=== PATIENT | female | born 1945 | race Caucasian/White ===

== ENCOUNTER → 2019-07-05 | Outpatient (CLI) | payer OTHER ==
[~2019-07-05] MED LIST: AMLO5 PO; Amaryl1 MG PO; CYCL10 PO; ESCI10; GLYMET1.25; HYDACE5 PO; HYDCHL12.5; LISI20 PO; METF500 PO; Norco 5-325 Ta1 EACH PO; VALS80
[2019-07-05 13:06] LABS: Source, Urine Clean Catch
[2019-07-05 13:17] LABS: Bacteria Many /hpf; Squamous Epithelial Cells Many /hpf (Few)
[2019-07-05 13:44] LABS: BASOPHILS ABSOLUTE AUTO 0.04 K/mm3 (0.00-0.23); BASOPHILS PERCENT AUTO 1 % (0-2); EOSINOPHILS PERCENT AUTO 2 % (0-6); Hematocrit 44.5 % (33.0-51.0); Hemoglobin 14.9 g/dL (11.5-16.0); IMMATURE GRAN ABSOLUTE AUTO 0.03 K/mm3 (0.00-0.10); IMMATURE GRAN PERCENT AUTO 1 % (0-1); LYMPHOCYTES ABSOLUTE AUTO 1.43 K/mm3 (0.84-5.20); LYMPHOCYTES PERCENT AUTO 29 % (21-46); MONOCYTES ABSOLUTE AUTO 0.34 K/mm3 (0.16-1.47); MONOCYTES PERCENT AUTO 7 % (4-13); Mean Corpuscular HGB 30.7 pg (26.0-34.0); Mean Corpuscular HGB Conc 33.5 g/dL (31.5-36.5); Mean Corpuscular Volume 92 fL (80-100); Mean Platelet Volume 9.2 fL (9.1-12.4); NEUTROPHILS ABSOLUTE AUTO 3.08 K/mm3 (1.96-9.15); NEUTROPHILS PERCENT AUTO 61 % (41-73); Platelet Count 236 K/mm3 (150-400); RDW Coefficient Variation 13.1 % (11.7-14.2); RDW Standard Deviation 43.9 fL (35.1-46.3); Red Blood Cell Count 4.86 M/mm3 (3.80-5.20); White Blood Cell Count 5.02 K/mm3 (4.00-11.30)
[2019-07-05 13:56] LABS: Alanine Aminotransfer (ALT/SGP 45 U/L (12-78); Albumin, Blood 3.9 g/dL (3.4-5.0); Albumin/Globulin Ratio 0.8 (0.8-1.8); Alk Phos 114 U/L (40-126); Anion Gap 8 mmol/L (6-16); Aspartate Aminotrans (AST/SGOT 31 U/L (12-37); Bilirubin, Total 0.5 mg/dL (0.1-1.0); Blood Urea Nitrogen 11 mg/dL (8-24); Bun/Creatinine Ratio 13.3 (12.0-20.0); CO2, Blood 29 mmol/L (21-32); Calcium, Blood 9.1 mg/dL (8.5-10.1); Chloride, Blood 102 mmol/L (98-108); Creatinine, Blood 0.83 mg/dL (0.40-1.00); Globulin, Blood 4.6 g/dL (2.2-4.0); Glomerular Filtration Rate >60 (60-); Glucose, Blood 147 mg/dL (70-99); Sodium, Blood 139 mmol/L (136-145); Total Protein, Blood 8.5 g/dL (6.4-8.2)
== END | disposition home or self-care (01) ==
LOC: LAB SHORT 13:05 → LAB EV 13:05
PROVIDERS: General Practice
DX: E11.37X1 Type 2 diabetes mellitus with diabetic macular edema, resolved following treatment, right eye (principal); R82.90 Unspecified abnormal findings in urine
CPT/HCPCS: 80053; 81015; 83036; 85025; 87077; 87086; 87147; 87186

== ENCOUNTER 2019-11-20 21:41 | Emergency (ER) | payer OTHER ==
[~2019-11-20] VITALS: Ht 157.5 cm; Wt 77.1 kg
[2019-11-20 22:35] LABS: BASOPHILS ABSOLUTE AUTO 0.05 K/mm3 (0.00-0.23); BASOPHILS PERCENT AUTO 1 % (0-2); EOSINOPHILS ABSOLUTE AUTO 0.17 K/mm3 (0.00-0.68); EOSINOPHILS PERCENT AUTO 3 % (0-6); Hematocrit 42.8 % (33.0-51.0); Hemoglobin 14.3 g/dL (11.5-16.0); IMMATURE GRAN ABSOLUTE AUTO 0.03 K/mm3 (0.00-0.10); IMMATURE GRAN PERCENT AUTO 0 % (0-1); LYMPHOCYTES ABSOLUTE AUTO 2.28 K/mm3 (0.84-5.20); LYMPHOCYTES PERCENT AUTO 34 % (21-46); MONOCYTES ABSOLUTE AUTO 0.56 K/mm3 (0.16-1.47); MONOCYTES PERCENT AUTO 8 % (4-13); Mean Corpuscular HGB 31.4 pg (26.0-34.0); Mean Corpuscular HGB Conc 33.4 g/dL (31.5-36.5); Mean Corpuscular Volume 94 fL (80-100); Mean Platelet Volume 9.4 fL (9.1-12.4); NEUTROPHILS PERCENT AUTO 54 % (41-73); Platelet Count 230 K/mm3 (150-400); RDW Coefficient Variation 12.4 % (11.7-14.2); RDW Standard Deviation 42.7 fL (35.1-46.3); Red Blood Cell Count 4.56 M/mm3 (3.80-5.20); White Blood Cell Count 6.69 K/mm3 (4.00-11.30)
[2019-11-20 22:53] LABS: Alanine Aminotransfer (ALT/SGP 46 U/L (12-78); Albumin, Blood 3.6 g/dL (3.4-5.0); Albumin/Globulin Ratio 0.8 (0.8-1.8); Alk Phos 124 U/L (50-136); Anion Gap 7 mmol/L (6-16); Aspartate Aminotrans (AST/SGOT 36 U/L (12-37); Bilirubin, Total 0.3 mg/dL (0.1-1.0); Blood Urea Nitrogen 13 mg/dL (8-24); CO2, Blood 29 mmol/L (21-32); Calcium, Blood 9.1 mg/dL (8.5-10.1); Chloride, Blood 102 mmol/L (98-108); Creatinine, Blood 0.56 mg/dL (0.40-1.00); Globulin, Blood 4.4 g/dL (2.2-4.0); Glomerular Filtration Rate >60 (60-); Glucose, Blood 237 mg/dL (70-99); Potassium, Blood 3.8 mmol/L (3.5-5.5); Sodium, Blood 138 mmol/L (136-145)
[2019-11-20 23:42] LABS: Source, Urine Clean Catch
[2019-11-20 23:53] LABS: Appearance, Urine Cloudy (Clear); Bilirubin, Urine Neg (Neg); Blood, Urine 5+ (Neg); Color, Urine Red (P-Yellow); Glucose Qualitative, Urine 4+ (Neg); Ketones, Urine 2+ (Neg); Leukocyte Esterase, Urine 3+ (Neg); Nitrite, Urine Neg (Neg); Protein, Urine 3+ (Neg); Specific Gravity, Urine 1.015 (1.003-1.022); Urobilinogen, Urine NORM (Normal)
[2019-11-20 23:54] LABS: Bacteria Many /hpf; Red Blood Cells, Urine TNTC /hpf (0-2); Squamous Epithelial Cells Rare /hpf (Few)
[2019-11-21] MEDS ORDERED: Macrobid 100 M100 MG PO (03:01)
== END 2019-11-21 03:15 | disposition home or self-care (01) ==
LOC: ER 21:41
PROVIDERS: Emergency Medicine
DX: R93.89 Abnormal findings on diagnostic imaging of other specified body structures (principal); I10 Essential (primary) hypertension; E11.9 Type 2 diabetes mellitus without complications; F41.9 Anxiety disorder, unspecified; Z88.0 Allergy status to penicillin; Z88.7 Allergy status to serum and vaccine; Z79.899 Other long term (current) drug therapy; Z79.84 Long term (current) use of oral hypoglycemic drugs
CPT/HCPCS: 74177; 76830; 76856; 80053; 81001; 85025; 87086; 99284-25; Q9967

== ENCOUNTER 2020-03-04 18:16 | Emergency (ER) | payer OTHER ==
[~2020-03-04] VITALS: Ht 157.5 cm; Wt 77.1 kg
[~2020-03-04 18:16] MED LIST changes: +Macrobid 100 M100 MG PO
[2020-03-04 18:48] LABS: BASOPHILS ABSOLUTE AUTO 0.03 K/mm3 (0.00-0.23); BASOPHILS PERCENT AUTO 1 % (0-2); EOSINOPHILS ABSOLUTE AUTO 0.14 K/mm3 (0.00-0.68); EOSINOPHILS PERCENT AUTO 2 % (0-6); Hematocrit 40.5 % (33.0-51.0); Hemoglobin 13.6 g/dL (11.5-16.0); IMMATURE GRAN ABSOLUTE AUTO 0.02 K/mm3 (0.00-0.10); IMMATURE GRAN PERCENT AUTO 0 % (0-1); LYMPHOCYTES ABSOLUTE AUTO 1.42 K/mm3 (0.84-5.20); LYMPHOCYTES PERCENT AUTO 23 % (21-46); MONOCYTES ABSOLUTE AUTO 0.54 K/mm3 (0.16-1.47); MONOCYTES PERCENT AUTO 9 % (4-13); Mean Corpuscular HGB 31.1 pg (26.0-34.0); Mean Corpuscular HGB Conc 33.6 g/dL (31.5-36.5); Mean Corpuscular Volume 93 fL (80-100); Mean Platelet Volume 9.4 fL (9.1-12.4); NEUTROPHILS ABSOLUTE AUTO 4.09 K/mm3 (1.96-9.15); NEUTROPHILS PERCENT AUTO 66 % (41-73); Platelet Count 204 K/mm3 (150-400); RDW Coefficient Variation 12.4 % (11.7-14.2); RDW Standard Deviation 42.8 fL (35.1-46.3); Red Blood Cell Count 4.37 M/mm3 (3.80-5.20); White Blood Cell Count 6.24 K/mm3 (4.00-11.30)
[2020-03-04 19:07] LABS: Anion Gap 8 mmol/L (6-16); Blood Urea Nitrogen 16 mg/dL (8-24); Bun/Creatinine Ratio 24.9 (12.0-20.0); CO2, Blood 24 mmol/L (21-32); Calcium, Blood 8.9 mg/dL (8.5-10.1); Chloride, Blood 106 mmol/L (98-108); Creatinine, Blood 0.64 mg/dL (0.40-1.00); Glomerular Filtration Rate >60 (60-); Glucose, Blood 216 mg/dL (70-99); Potassium, Blood 3.3 mmol/L (3.5-5.5); Sodium, Blood 138 mmol/L (136-145); Troponin I <0.015 ng/mL (0.000-0.040)
[2020-03-04 19:30] LABS: Source, Urine Clean Catch
[2020-03-04 20:02] LABS: Bilirubin, Urine Neg (Neg); Blood, Urine 2+ (Neg); Glucose Qualitative, Urine 2+ (Neg); Ketones, Urine 4+ (Neg); Leukocyte Esterase, Urine 1+ (Neg); Nitrite, Urine Neg (Neg); Protein, Urine 1+ (Neg); Specific Gravity, Urine 1.025 (1.003-1.022); Urobilinogen, Urine 1+ (Normal)
[2020-03-04 20:03] LABS: Appearance, Urine Hazy (Clear); Color, Urine Yellow (P-Yellow)
[2020-03-04 20:08] LABS: Bacteria Few /hpf; Red Blood Cells, Urine 0-2 /hpf (0-2); Squamous Epithelial Cells Few /hpf (Few)
[2020-03-04] MEDS ORDERED: Macrobid 100 M100 MG PO (20:29)
== END 2020-03-04 20:57 | disposition home or self-care (01) ==
LOC: ER 18:16
PROVIDERS: Physician Assistant
DX: N39.0 Urinary tract infection, site not specified (principal); R53.1 Weakness; E11.9 Type 2 diabetes mellitus without complications; Z79.84 Long term (current) use of oral hypoglycemic drugs; Z79.899 Other long term (current) drug therapy; Z88.0 Allergy status to penicillin; Z88.7 Allergy status to serum and vaccine
CPT/HCPCS: 80048; 81001; 84484; 85025; 87086; 93005; 93010; 96360; 96361; 99285-25; J7030

== ENCOUNTER → 2021-01-08 | Outpatient (CLI) | payer OTHER ==
[~2021-01-08] MED LIST changes: +Bactrim Ds Tab1 EACH PO
== END | disposition home or self-care (01) ==
LOC: LAB EV 16:29 → LAB SHORT 16:29
DX: N39.0 Urinary tract infection, site not specified (principal)
CPT/HCPCS: 87077; 87086; 87186

== ENCOUNTER 2021-04-09 22:17 | Emergency (ER) | payer OTHER ==
[~2021-04-09] VITALS: Ht 157.5 cm; Wt 72.6 kg
[2021-04-09 22:40] LABS: BASOPHILS ABSOLUTE AUTO 0.04 K/mm3 (0.00-0.23); BASOPHILS PERCENT AUTO 0 % (0-2); EOSINOPHILS ABSOLUTE AUTO 0.09 K/mm3 (0.00-0.68); EOSINOPHILS PERCENT AUTO 1 % (0-6); Hematocrit 43.1 % (33.0-51.0); Hemoglobin 14.4 g/dL (11.5-16.0); IMMATURE GRAN ABSOLUTE AUTO 0.04 K/mm3 (0.00-0.10); IMMATURE GRAN PERCENT AUTO 0 % (0-1); LYMPHOCYTES ABSOLUTE AUTO 1.82 K/mm3 (0.84-5.20); LYMPHOCYTES PERCENT AUTO 20 % (21-46); MONOCYTES ABSOLUTE AUTO 0.73 K/mm3 (0.16-1.47); MONOCYTES PERCENT AUTO 8 % (4-13); Mean Corpuscular HGB 30.3 pg (26.0-34.0); Mean Corpuscular HGB Conc 33.4 g/dL (31.5-36.5); Mean Corpuscular Volume 91 fL (80-100); Mean Platelet Volume 9.3 fL (9.1-12.4); NEUTROPHILS ABSOLUTE AUTO 6.18 K/mm3 (1.96-9.15); NEUTROPHILS PERCENT AUTO 70 % (41-73); Platelet Count 241 K/mm3 (150-400); RDW Coefficient Variation 12.6 % (11.7-14.2); RDW Standard Deviation 41.9 fL (35.1-46.3); Red Blood Cell Count 4.75 M/mm3 (3.80-5.20)
[2021-04-09 22:58] LABS: Alanine Aminotransfer (ALT/SGP 33 U/L (12-78); Albumin, Blood 3.5 g/dL (3.4-5.0); Albumin/Globulin Ratio 0.7 (0.8-1.8); Alk Phos 107 U/L (50-136); Anion Gap 7 mmol/L (6-16); Aspartate Aminotrans (AST/SGOT 28 U/L (12-37); Bilirubin, Total 0.6 mg/dL (0.1-1.0); Blood Urea Nitrogen 15 mg/dL (8-24); Bun/Creatinine Ratio 19.2 (12.0-20.0); CO2, Blood 24 mmol/L (21-32); Calcium, Blood 8.9 mg/dL (8.5-10.1); Chloride, Blood 106 mmol/L (98-108); Creatinine, Blood 0.78 mg/dL (0.40-1.00); Globulin, Blood 4.7 g/dL (2.2-4.0); Glomerular Filtration Rate >60 (60-); Glucose, Blood 286 mg/dL (70-99); Potassium, Blood 3.8 mmol/L (3.5-5.5); Sodium, Blood 137 mmol/L (136-145); Total Protein, Blood 8.2 g/dL (6.4-8.2)
[2021-04-09 23:20] LABS: Source, Urine Voided
[2021-04-09 23:26] LABS: Bilirubin, Urine Neg (Neg); Blood, Urine 3+ (Neg); Glucose Qualitative, Urine 4+ (Neg); Ketones, Urine 2+ (Neg); Leukocyte Esterase, Urine 3+ (Neg); Nitrite, Urine Pos (Neg); Protein, Urine 3+ (Neg); Specific Gravity, Urine 1.015 (1.003-1.022); Urobilinogen, Urine NORM (Normal); pH, Urine 6.5 (5.0-8.0)
[2021-04-09 23:28] LABS: Appearance, Urine Cloudy (Clear); Color, Urine Yellow (P-Yellow)
[2021-04-09 23:32] LABS: Bacteria Many /hpf; Red Blood Cells, Urine 0-2 /hpf (0-2); Squamous Epithelial Cells Not Seen /hpf (Few); White Blood Cells, Urine TNTC /hpf (0-5)
[2021-04-10] MEDS ORDERED: CEPH500 PO (00:16)
== END 2021-04-10 01:29 | disposition home or self-care (01) ==
LOC: ER 22:17
PROVIDERS: Emergency Medicine
DX: N39.0 Urinary tract infection, site not specified (principal); I10 Essential (primary) hypertension; E11.9 Type 2 diabetes mellitus without complications; Z88.0 Allergy status to penicillin; Z88.7 Allergy status to serum and vaccine; Z79.899 Other long term (current) drug therapy
CPT/HCPCS: 36415; 80053; 81001; 85025; 87077; 87086; 87186; 93005; 93010; 96365; 99285-25; J0696; P9612

== ENCOUNTER 2021-04-27 19:25 | Inpatient (IN) | payer OTHER, MEDICARE ==
[~2021-04-27] VITALS: Ht 170.2 cm; Wt 77.7 kg
[~2021-04-27 19:25] MED LIST changes: +CEPH500 PO
[2021-04-27 20:07] LABS: Source, Urine Catheter
[2021-04-27 20:17] LABS: BASOPHILS ABSOLUTE AUTO 0.03 K/mm3 (0.00-0.23); BASOPHILS PERCENT AUTO 0 % (0-2); EOSINOPHILS PERCENT AUTO 0 % (0-6); Hematocrit 45.3 % (33.0-51.0); Hemoglobin 14.7 g/dL (11.5-16.0); IMMATURE GRAN ABSOLUTE AUTO 0.05 K/mm3 (0.00-0.10); IMMATURE GRAN PERCENT AUTO 0 % (0-1); LYMPHOCYTES PERCENT AUTO 11 % (21-46); MONOCYTES ABSOLUTE AUTO 0.91 K/mm3 (0.16-1.47); MONOCYTES PERCENT AUTO 7 % (4-13); Mean Corpuscular HGB 30.2 pg (26.0-34.0); Mean Corpuscular HGB Conc 32.5 g/dL (31.5-36.5); Mean Corpuscular Volume 93 fL (80-100); Mean Platelet Volume 9.9 fL (9.1-12.4); NEUTROPHILS ABSOLUTE AUTO 11.16 K/mm3 (1.96-9.15); NEUTROPHILS PERCENT AUTO 82 % (41-73); Platelet Count 250 K/mm3 (150-400); RDW Coefficient Variation 13.3 % (11.7-14.2); RDW Standard Deviation 45.3 fL (35.1-46.3); Red Blood Cell Count 4.87 M/mm3 (3.80-5.20); White Blood Cell Count 13.65 K/mm3 (4.00-11.30)
[2021-04-27 20:21] LABS: Appearance, Urine Clear (Clear); Bilirubin, Urine Neg (Neg); Blood, Urine Neg (Neg); Color, Urine Yellow (P-Yellow); Glucose Qualitative, Urine 4+ (Neg); Ketones, Urine 3+ (Neg); Leukocyte Esterase, Urine 1+ (Neg); Nitrite, Urine Neg (Neg); Protein, Urine 2+ (Neg); Urobilinogen, Urine NORM (Normal)
[2021-04-27 20:36] LABS: Bacteria Mod /hpf; Mucus Mod (0-Heavy); Red Blood Cells, Urine Not Seen /hpf (0-2); Squamous Epithelial Cells Rare /hpf (Few); White Blood Cells, Urine 0-2 /hpf (0-5)
[2021-04-27 20:42] LABS: Alanine Aminotransfer (ALT/SGP 31 U/L (12-78); Albumin/Globulin Ratio 0.6 (0.8-1.8); Alk Phos 80 U/L (50-136); Anion Gap 11 mmol/L (6-16); Aspartate Aminotrans (AST/SGOT 36 U/L (12-37); Bilirubin, Total 0.7 mg/dL (0.1-1.0); Blood Urea Nitrogen 36 mg/dL (8-24); Bun/Creatinine Ratio 69.1 (12.0-20.0); CO2, Blood 21 mmol/L (21-32); CPK Creatine Kinase 32 U/L (26-193); Calcium, Blood 9.3 mg/dL (8.5-10.1); Chloride, Blood 113 mmol/L (98-108); Creatinine, Blood 0.52 mg/dL (0.40-1.00); Globulin, Blood 5.4 g/dL (2.2-4.0); Glomerular Filtration Rate >60 (60-); Glucose, Blood 278 mg/dL (70-99); Potassium, Blood 3.9 mmol/L (3.5-5.5); Sodium, Blood 145 mmol/L (136-145); Total Protein, Blood 8.4 g/dL (6.4-8.2)
[2021-04-27] MEDS ORDERED: Glucophage 500 mg PO (23:31)
[2021-04-28 01:36] LABS: BASOPHILS ABSOLUTE AUTO 0.02 K/mm3 (0.00-0.23); BASOPHILS PERCENT AUTO 0 % (0-2); EOSINOPHILS ABSOLUTE AUTO 0.02 K/mm3 (0.00-0.68); EOSINOPHILS PERCENT AUTO 0 % (0-6); Hematocrit 38.5 % (33.0-51.0); Hemoglobin 12.5 g/dL (11.5-16.0); IMMATURE GRAN ABSOLUTE AUTO 0.05 K/mm3 (0.00-0.10); IMMATURE GRAN PERCENT AUTO 0 % (0-1); LYMPHOCYTES ABSOLUTE AUTO 2.11 K/mm3 (0.84-5.20); LYMPHOCYTES PERCENT AUTO 17 % (21-46); MONOCYTES ABSOLUTE AUTO 0.68 K/mm3 (0.16-1.47); MONOCYTES PERCENT AUTO 6 % (4-13); Mean Corpuscular HGB 30.2 pg (26.0-34.0); Mean Corpuscular HGB Conc 32.5 g/dL (31.5-36.5); Mean Corpuscular Volume 93 fL (80-100); Mean Platelet Volume 9.5 fL (9.1-12.4); NEUTROPHILS ABSOLUTE AUTO 9.47 K/mm3 (1.96-9.15); NEUTROPHILS PERCENT AUTO 77 % (41-73); Platelet Count 205 K/mm3 (150-400); RDW Coefficient Variation 13.2 % (11.7-14.2); RDW Standard Deviation 45.4 fL (35.1-46.3); Red Blood Cell Count 4.14 M/mm3 (3.80-5.20); White Blood Cell Count 12.35 K/mm3 (4.00-11.30)
[2021-04-28 01:54] LABS: Anion Gap 7 mmol/L (6-16); Blood Urea Nitrogen 25 mg/dL (8-24); Bun/Creatinine Ratio 56.6 (12.0-20.0); CO2, Blood 23 mmol/L (21-32); Chloride, Blood 113 mmol/L (98-108); Creatinine, Blood 0.44 mg/dL (0.40-1.00); Glomerular Filtration Rate >60 (60-); Glucose, Blood 203 mg/dL (70-99); Potassium, Blood 3.3 mmol/L (3.5-5.5); Sodium, Blood 143 mmol/L (136-145)
[2021-04-28] MEDS ORDERED: AMLODIPINE BESYL5 MG PO (12:04)
--- NOTE | 2021-04-28 19:09 | NUR ---
a+o to self and location but becomes overwhelmed by emotion and becomes disorintated, abx infusing call light in reach, rm air, dmitriy area red, covered with meplex and cream, will continue to monitor and treat until share bsr with noc nurse
[2021-04-28 21:14] LABS: Vancomycin, Trough 10.9 ug/mL (5.0-10.0)
--- NOTE | 2021-04-29 04:18 | NUR ---
SHIFT SUMMARY: PT IS ALERT AND ORIENTED WITH SOME CONFUSION, NEEDS OCCASIONAL REORIENTATION. PT IS CALM AND COOPERATIVE WITH CARE. PT CALLS APPROPRIATELY. PT TO WEAK TO TRANSFER AT THIS POINT, BED CAGLE NEEDED. PT SLEPT MUCH OF THE NIGHT WHEN NOT DISTURBED. PT DENIES PAIN, NAUSEA, VOMITING, AND SOB. NO ACUTE CHANGES OR COMPLICATIONS THIS SHIFT. BED IN LOW POSITION, CALL LIGHT WITHIN REACH. WILL CONTINUE TO MONITOR.
[2021-04-29 06:01] LABS: BASOPHILS ABSOLUTE AUTO 0.02 K/mm3 (0.00-0.23); BASOPHILS PERCENT AUTO 0 % (0-2); EOSINOPHILS ABSOLUTE AUTO 0.07 K/mm3 (0.00-0.68); EOSINOPHILS PERCENT AUTO 1 % (0-6); Hematocrit 36.4 % (33.0-51.0); Hemoglobin 12.1 g/dL (11.5-16.0); IMMATURE GRAN ABSOLUTE AUTO 0.03 K/mm3 (0.00-0.10); IMMATURE GRAN PERCENT AUTO 0 % (0-1); LYMPHOCYTES ABSOLUTE AUTO 1.23 K/mm3 (0.84-5.20); LYMPHOCYTES PERCENT AUTO 17 % (21-46); MONOCYTES ABSOLUTE AUTO 0.49 K/mm3 (0.16-1.47); MONOCYTES PERCENT AUTO 7 % (4-13); Mean Corpuscular HGB 30.2 pg (26.0-34.0); Mean Corpuscular HGB Conc 33.2 g/dL (31.5-36.5); Mean Corpuscular Volume 91 fL (80-100); NEUTROPHILS ABSOLUTE AUTO 5.46 K/mm3 (1.96-9.15); NEUTROPHILS PERCENT AUTO 75 % (41-73); Platelet Count 174 K/mm3 (150-400); RDW Coefficient Variation 12.7 % (11.7-14.2); RDW Standard Deviation 42.6 fL (35.1-46.3); Red Blood Cell Count 4.01 M/mm3 (3.80-5.20)
[2021-04-29 06:20] LABS: Alanine Aminotransfer (ALT/SGP 15 U/L (12-78); Albumin, Blood 2.1 g/dL (3.4-5.0); Alk Phos 59 U/L (50-136); Anion Gap 8 mmol/L (6-16); Aspartate Aminotrans (AST/SGOT 18 U/L (12-37); Bilirubin, Total 0.6 mg/dL (0.1-1.0); Blood Urea Nitrogen 7 mg/dL (8-24); Bun/Creatinine Ratio 13.3 (12.0-20.0); CO2, Blood 24 mmol/L (21-32); Calcium, Blood 7.6 mg/dL (8.5-10.1); Chloride, Blood 107 mmol/L (98-108); Creatinine, Blood 0.53 mg/dL (0.40-1.00); Glomerular Filtration Rate >60 (60-); Glucose, Blood 165 mg/dL (70-99); Magnesium, Blood 1.7 mg/dL (1.6-2.4); Phosphorus, Blood 2.1 mg/dL (2.5-4.9); Potassium, Blood 2.9 mmol/L (3.5-5.5); Sodium, Blood 139 mmol/L (136-145)
[2021-04-29 06:37] LABS: Albumin/Globulin Ratio 0.5 (0.8-1.8)
[2021-04-29 07:09] LABS: Total Protein, Blood 6.1 g/dL (6.4-8.2)
--- NOTE | 2021-04-29 13:45 | NUR ---
Spiritual care visit conducted. Patient tells me about her fears concerning where her medical issues are heading and pain management once she will DC the hospital. She talks about her Taoist hodan (She attends [employer] in [place]) and her love of riding motorcycles. I provide therapeutic listening, anxiety containment, recitation of inspiring scriptures and prayer. Patient responds well and displays eviednce of increased peace. Spiritual care will remain available to patient and family.
--- NOTE | 2021-04-29 14:24 | NUR ---
Met with pt at the request of Niyah, planner/scheduler from [employer]. Pt is pleasant, alert and at times exhibits mild confusion. She is aware she's been living alone, and that she was found down at home. Pt tearful about her son Terry, stating he works at [employer] but she has been unable to get ahold of him there. It sounds as if they are estranged in some capacity. 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 She also has a wound to dmitriy-area, that she states is really painful at times. She states her biggest goal is "pain control". I ask her if she is interested in curative treatment vs hospice. She states she is very clear with what hospice is, as she previouly worked at [employer] [employer]. She tells me she knows she isn't able to live alone at this time, and is willing to go to [facility] on hospice. Passed the information along to Niyah. Will remain available for vists as needed.
--- NOTE | 2021-04-29 17:36 | NUR ---
Update 04/29/2021: Requested palliative care to me with patient to discuss comfort care. Pt. is requesting a hospice bed within [facility] and no preference for hospice provider. Pt. is not yet ready for discharge. I am preparing her packet for review by Lety alvarado. Will establish with hospice next week. Pt. is agreeable to this plan. She advises that she has not family to update as her has and she does not speak to her son.
--- NOTE | 2021-04-29 18:54 | NUR ---
alert and orintated to self but easily confused and distracted, call light in reach, potassium infusing, rm air, sitting up in chair with alarm, will continue to monitor and treat until share bsr with noc shift nurse and pt
--- NOTE | 2021-04-30 04:11 | NUR ---
PATIENT SLEPT WELL OVERNIGHT. NO COMPLAINTS OF PAIN OR DISCOMFORT, TOLERATING ANTIBIOTICS WITHOUT DIFFICULTY. KIM CATHETER DRAINING CLEAR YELLOW ODOROUS URINE. iNTO BED WITH ONE STRONG ASSIST AFTER COMMODE CHAIR. LOVE HER PLACE AT [facility] LOOKING FORWARD TO DISCHARGE WHEN A LITTLE STRONGER. UNDERSTANDS THE NEED FOR A BRIEF STAY IN REHAB IS UPCOMING
--- NOTE | 2021-04-30 07:30 | NUR ---
ASSUMED CARE: PT RESTING QUIETLY AT THIS TIME. NO ACUTE NEEDS OR CONCERNS IDENTIFIED.
[2021-04-30 09:44] LABS: BASOPHILS ABSOLUTE AUTO 0.02 K/mm3 (0.00-0.23); BASOPHILS PERCENT AUTO 0 % (0-2); EOSINOPHILS ABSOLUTE AUTO 0.06 K/mm3 (0.00-0.68); EOSINOPHILS PERCENT AUTO 1 % (0-6); Hematocrit 35.8 % (33.0-51.0); Hemoglobin 12.2 g/dL (11.5-16.0); IMMATURE GRAN ABSOLUTE AUTO 0.06 K/mm3 (0.00-0.10); IMMATURE GRAN PERCENT AUTO 1 % (0-1); LYMPHOCYTES ABSOLUTE AUTO 1.26 K/mm3 (0.84-5.20); LYMPHOCYTES PERCENT AUTO 22 % (21-46); MONOCYTES ABSOLUTE AUTO 0.51 K/mm3 (0.16-1.47); MONOCYTES PERCENT AUTO 9 % (4-13); Mean Corpuscular HGB 30.8 pg (26.0-34.0); Mean Corpuscular HGB Conc 34.1 g/dL (31.5-36.5); Mean Corpuscular Volume 90 fL (80-100); Mean Platelet Volume 10.1 fL (9.1-12.4); NEUTROPHILS ABSOLUTE AUTO 3.77 K/mm3 (1.96-9.15); NEUTROPHILS PERCENT AUTO 66 % (41-73); Platelet Count 175 K/mm3 (150-400); RDW Coefficient Variation 12.7 % (11.7-14.2); RDW Standard Deviation 42.3 fL (35.1-46.3); Red Blood Cell Count 3.96 M/mm3 (3.80-5.20); White Blood Cell Count 5.68 K/mm3 (4.00-11.30)
[2021-04-30 09:56] LABS: Albumin, Blood 2.1 g/dL (3.4-5.0); Anion Gap 5 mmol/L (6-16); Blood Urea Nitrogen 4 mg/dL (8-24); Bun/Creatinine Ratio 8.6 (12.0-20.0); CO2, Blood 28 mmol/L (21-32); Chloride, Blood 106 mmol/L (98-108); Creatinine, Blood 0.46 mg/dL (0.40-1.00); Glomerular Filtration Rate >60 (60-); Glucose, Blood 229 mg/dL (70-99); Phosphorus, Blood 2.7 mg/dL (2.5-4.9); Sodium, Blood 139 mmol/L (136-145); Vancomycin, Trough 16.9 ug/mL (5.0-10.0)
--- NOTE | 2021-04-30 17:28 | NUR ---
SHIFT SUMMARY: PT HAS BEEN LETHARGIC BUT EASILY ROUSEABLE. PICTURES IN CHART OF GROIN EXCORIATIONS. IV ABX BEING GIVEN. PLAN IS FOR DC TO SNF ON HOSPICE WHEN MEDICALLY STABLE PER DR CATALAN
[2021-05-01 06:15] LABS: Albumin, Blood 1.8 g/dL (3.4-5.0); Anion Gap 6 mmol/L (6-16); Blood Urea Nitrogen 5 mg/dL (8-24); CO2, Blood 27 mmol/L (21-32); Calcium, Blood 8.1 mg/dL (8.5-10.1); Chloride, Blood 106 mmol/L (98-108); Creatinine, Blood 0.56 mg/dL (0.40-1.00); Glomerular Filtration Rate >60 (60-); Glucose, Blood 181 mg/dL (70-99); Phosphorus, Blood 2.4 mg/dL (2.5-4.9); Potassium, Blood 3.2 mmol/L (3.5-5.5); Sodium, Blood 139 mmol/L (136-145)
--- NOTE | 2021-05-01 06:16 | NUR ---
BEHAVIORAL PEDIATRICIAN SUMMARY HAS BEEN RESTING QUIETLY WITH FEW INTERUPTIONS THIS SHIFT. IV ANTIBIOTICS INFUSED PER NOV. CALL LIGHT IN REACH. NO C/O PAIN. ISOLATION PRECAUTIONS MAINTAINED.
--- NOTE | 2021-05-01 07:05 | NUR ---
ASSUMED CARE: PT RESTING QUIETLY. NO ACUTE NEEDS OR CONCERNS AT THIS TIME.
--- NOTE | 2021-05-01 11:29 | NUR ---
DR JOSEPH ASKED ABOUT PHYSICAL THERAPY EVALUATION. SPOKE WITH THERAPIST WHO STATES PT HAD EVAL ALREADY AND WILL BE WORKED WITH AGAIN TOMORROW. THERAPIST STATES CURRENT PLAN IS FOR DC TO SNF
--- NOTE | 2021-05-01 18:51 | NUR ---
SHIFT SUMMARY: PT GOT OUT OF BED TO CHAIR WITH ONE ASSIST. PT DOES NOT FEEL THAT SHE CAN DO IT AND NEEDS ENCOURAGEMENT. BECAME TEARFUL AFTER MOVEMENT BECAUSE BOTTOM WAS SORE. PILLOW PLACED UNDER WOUND FOR CUSHION. PLAN IS FOR DC TO SNF WHEN BED IS AVAILABLE.
[2021-05-01 21:44] LABS: Vancomycin, Trough 21.3 ug/mL (5.0-10.0)
--- NOTE | 2021-05-02 02:05 | NUR ---
05/01/21 6014 PT LYING IN BED. DENIES ANY DISCOMFORT AT THIS TIME. PT HAS CELLULITIS IN DELMY AREA AND ON BOTTOM, PT'S BOTTOM HAS AN OPEN AREA, PLACED DRESSING OVER THIS OPEN AREA. BS 250. NO OTHER APPARENT SIGNS OF DISTRESS. CALL LIGHT IS IN REACH.
--- NOTE | 2021-05-02 02:25 | NUR ---
0027, PT'S IV NO LONGER PATENT, PLACED A NEW IV. PT DENIES NEED FOR ANYTHING ELSE AT THIS TIME. NO APPARENT SIGNS OF DISTRESS. CALL LIGHT IS IN REACH.
--- NOTE | 2021-05-02 02:26 | NUR ---
PT LYING IN BED, EYES CLOSED, APPEARS TO BE RESTING. BREATHING IS EVEN, UNLABORED. NO APPARENT SIGNS OF DISTRESS. CALL LIGHT IS IN REACH.
[2021-05-02 06:14] LABS: Albumin, Blood 1.9 g/dL (3.4-5.0); Anion Gap 7 mmol/L (6-16); Blood Urea Nitrogen 5 mg/dL (8-24); CO2, Blood 27 mmol/L (21-32); Calcium, Blood 8.3 mg/dL (8.5-10.1); Chloride, Blood 104 mmol/L (98-108); Glomerular Filtration Rate >60 (60-); Glucose, Blood 155 mg/dL (70-99); Phosphorus, Blood 2.8 mg/dL (2.5-4.9); Potassium, Blood 3.6 mmol/L (3.5-5.5); Sodium, Blood 138 mmol/L (136-145)
--- NOTE | 2021-05-02 06:25 | NUR ---
PT IS AAO X 4, ON RA. DENIED ANY DISCOMFORT FOR THIS SHIFT. BS WAS 250. PT HAS CELLULITIS IN DELMY AREA AND ON BOTTOM. OPEN AREA OT BOTTOM COVERED WITH DRESSING THAT IS C/D/I.
--- NOTE | 2021-05-02 06:25 | NUR ---
0400 PT LYING IN BED, EYES CLOSED, WAKES EASILY TO VERBAL STIMULI. NO APPARENT SIGNS OF DISTRESS. CALL LIGHT IS IN REACH.
--- NOTE | 2021-05-02 06:26 | NUR ---
PT LYING IN BED, EYES CLOSED, APPEARS TO BE RESTING. BREATHING IS EVEN, UNLABORED. NO APPARENT SIGNS OF DISTRESS. CALL LIGHT IS IN REACH. NO OTHER CHANGES THIS SHIFT.
--- NOTE | 2021-05-02 07:15 | NUR ---
ASSUMED CARE: PT RESTING IN BED AT THIS TIME. DENIES NEEDS OR CONCERNS.
--- NOTE | 2021-05-02 09:43 | NUR ---
CT CALLED AND STATED THAT BIOPSY THAT DR SILVA ORDERED CANNOT BE DONE HERE. TRIED TO CALL TO CLARIFY AND WAS UNABLE TO GET IN TOUCH WITH ANYONE. CALL TO DR SILVA'S OFFICE AND SPOKE WITH BACKPACKERS MANAGER WHO STATED SHE WOULD CONTACT RADIOLOGY AND RELAY MESSAGE TO DR SILVA
--- NOTE | 2021-05-02 10:52 | NUR ---
EVERGREEN DR CAME TO SEE PT AND VISUALIZED PT'S WOUNDS IN DELMY AREA. AWARE THAT ONCOLOGY CAME TO SEE PT. OT AT BEDSIDE WITH PT NOW.
--- NOTE | 2021-05-02 11:44 | NUR ---
CALL OUT TO DR VALDEZ TO SEE IF HE WOULD LIKE A WOUND CARE CONSULT WELL THE WOUND CARE REFERRAL FOR PT. PT IS CURRENTLY UP IN A CHAIR WORKING WITH PHYSICAL THERAPY
--- NOTE | 2021-05-02 16:47 | NUR ---
Update 05/02/2021: Discussed discharge planning with pt. this am. She stated that she was not sure what she had said last week when she discussed care goals with palliative care. Per pt. she was very confused at the time and can not remember. When I brought up hospice she was not sure if she wanted to go on hospice or not at this time. Pt. is declining remote computer terminal operator care facility. She is agreeable to SNF and had requested [facility]. I advised pt. that I would discussed hospice/home health with palliative care nurse who will be back tomorrow. Packet sent to Lety for review. Pt. was accepted at [facility] pending normal temps and negative COVID test. Prior auth has been requested through [employer].
--- NOTE | 2021-05-02 17:15 | NUR ---
SHIFT SUMMARY: PT SEEN BY WOUND CARE NURSE WITH NEW RECOMMENDATIONS FOR WOUND CARE. CHANGED ANTIBIOTICS TODAY. PT WORKED WITH PT/OT AND GOT UP INTO CHAIR THIS SHIFT. WHEN MEDICALLY STABLE, PLAN IS FOR DC TO SNF FOR REHAB. NO FURTHER NEEDS OR CONCERNS AT THIS TIME.
--- NOTE | 2021-05-03 04:26 | NUR ---
DIRECTOR OF STRATEGIC PROGRAMS SUMMARY PT A/O X4, PLEASANT AND COOPERATIVE. SLEPT WELL TONIGHT. DENIED PAIN, NAUSEA, SOB OVERNIGHT. KIM PATENT AND DRAINING URINE TO GRAVITY. REPOSITIONING PROVIDED THROUGHOUT THE NIGHT. VITALS ARE STABLE. ROOM AIR. BED ALARM ON, CALL LIGHT WITHIN REACH, WILL CONTINUE TO MONITOR.
[2021-05-03 05:22] LABS: BASOPHILS ABSOLUTE AUTO 0.02 K/mm3 (0.00-0.23); BASOPHILS PERCENT AUTO 0 % (0-2); EOSINOPHILS ABSOLUTE AUTO 0.15 K/mm3 (0.00-0.68); EOSINOPHILS PERCENT AUTO 3 % (0-6); Hematocrit 35.6 % (33.0-51.0); Hemoglobin 11.8 g/dL (11.5-16.0); IMMATURE GRAN PERCENT AUTO 2 % (0-1); LYMPHOCYTES ABSOLUTE AUTO 1.94 K/mm3 (0.84-5.20); LYMPHOCYTES PERCENT AUTO 38 % (21-46); MONOCYTES PERCENT AUTO 10 % (4-13); Mean Corpuscular HGB 30.1 pg (26.0-34.0); Mean Corpuscular HGB Conc 33.1 g/dL (31.5-36.5); Mean Corpuscular Volume 91 fL (80-100); Mean Platelet Volume 9.9 fL (9.1-12.4); NEUTROPHILS ABSOLUTE AUTO 2.39 K/mm3 (1.96-9.15); NEUTROPHILS PERCENT AUTO 47 % (41-73); Platelet Count 212 K/mm3 (150-400); RDW Coefficient Variation 12.7 % (11.7-14.2); RDW Standard Deviation 42.2 fL (35.1-46.3); Red Blood Cell Count 3.92 M/mm3 (3.80-5.20)
[2021-05-03 05:40] LABS: Albumin, Blood 1.9 g/dL (3.4-5.0); Anion Gap 4 mmol/L (6-16); Blood Urea Nitrogen 4 mg/dL (8-24); Bun/Creatinine Ratio 7.6 (12.0-20.0); CO2, Blood 28 mmol/L (21-32); Calcium, Blood 8.4 mg/dL (8.5-10.1); Chloride, Blood 105 mmol/L (98-108); Creatinine, Blood 0.53 mg/dL (0.40-1.00); Glomerular Filtration Rate >60 (60-); Glucose, Blood 172 mg/dL (70-99); Phosphorus, Blood 3.1 mg/dL (2.5-4.9); Potassium, Blood 3.8 mmol/L (3.5-5.5); Sodium, Blood 137 mmol/L (136-145)
[2021-05-03 11:24] LABS: SARS-Cov-2 (COVID-19) PCR, MMC POSITIVE (NEGATIVE)
--- NOTE | 2021-05-03 17:28 | NUR ---
Update 05/03/21: Pt. was accepted to SN[facility]. STAT COVID ordered. Pt. unexpectedly tested positive for COVID-19. SNF will not accept pt. due to positive COVID. There is not a facility in [place] that will accept COVID positive patients at this time. Dr. Manzo advised pt. of positive COVID test. Per state guidelines, pt. would have to be placed at a SNF with a designated COVID wing. Paperwork will be sent for placement review. Hopeful to receive response and placement details by tomorrow. The only alternative would be home with caregiver. At this point, the pt. is not likely to find a caregiver due to positive COVID test. We will continue to work towards placement.
--- NOTE | 2021-05-03 18:00 | NUR ---
Pt tested positive for Covid today. She states this is very stressful to her, as she has been fully vaccinated. However, she is asymptomatic at this time, and we discussed some of the symptoms to watch for. She was planning to go to either [facility] or [facility], but the positive test means she will need to go to a SNF that has a Covid reddy, as the local one is now closed. She is not happy about that part, but she does know she needs rehab to get stronger. Will remain available for visits as needed.
--- NOTE | 2021-05-03 18:10 | NUR ---
SHIFT SUMMARY: IS NOW COVID 19 POSITIVE; PROVIDER NOTIFIED. PT IS ASYMPTOMATIC. LUNG SOUONDS ARE DIM THROUGHOUT, BUT IS DOING WELL ON ROOM AIR. KIM DRAINING ADEQUATE URINE. CHANGED FROM IV TO PO ABX. DRESSING ON BUTTOCKS CHANGED; SKIN IS EXCORIATED THROUGHOUT DELMY AREA, GROIN, AND BUTTOCKS. APPETITE OK. EXPRESSED CONCERN/ANXIETY ABOUT POSSIBLY BEING TRANSFERRED TO SNF IN [place], IS WORRIED THAT SHE'LL "LOSE EVERYTHING" IF SHE IS SENT THERE FOR REHAB, OR WILL BE FORGOTTEN THERE.
[2021-05-04 05:26] LABS: BASOPHILS ABSOLUTE AUTO 0.05 K/mm3 (0.00-0.23); BASOPHILS PERCENT AUTO 1 % (0-2); EOSINOPHILS ABSOLUTE AUTO 0.09 K/mm3 (0.00-0.68); EOSINOPHILS PERCENT AUTO 2 % (0-6); Hematocrit 35.7 % (33.0-51.0); Hemoglobin 11.9 g/dL (11.5-16.0); IMMATURE GRAN ABSOLUTE AUTO 0.14 K/mm3 (0.00-0.10); IMMATURE GRAN PERCENT AUTO 3 % (0-1); LYMPHOCYTES ABSOLUTE AUTO 1.82 K/mm3 (0.84-5.20); LYMPHOCYTES PERCENT AUTO 38 % (21-46); MONOCYTES ABSOLUTE AUTO 0.55 K/mm3 (0.16-1.47); MONOCYTES PERCENT AUTO 12 % (4-13); Mean Corpuscular HGB 30.1 pg (26.0-34.0); Mean Corpuscular HGB Conc 33.3 g/dL (31.5-36.5); Mean Corpuscular Volume 90 fL (80-100); Mean Platelet Volume 9.5 fL (9.1-12.4); NEUTROPHILS ABSOLUTE AUTO 2.12 K/mm3 (1.96-9.15); NEUTROPHILS PERCENT AUTO 45 % (41-73); Platelet Count 258 K/mm3 (150-400); RDW Coefficient Variation 12.6 % (11.7-14.2); RDW Standard Deviation 41.6 fL (35.1-46.3); Red Blood Cell Count 3.96 M/mm3 (3.80-5.20); White Blood Cell Count 4.77 K/mm3 (4.00-11.30)
--- NOTE | 2021-05-04 05:34 | NUR ---
SHIFT SUMMARY PATIENT ALERT AND ORIENTED X2. HAD NO COMPLAINTS OF PAIN OR SHORTNESS OF BREATH. SLEPT WELL OVERNIGHT. NO ACUTE ISSUES NOTED. KIM PATENT AND DRAINING TO GRAVITY. IV PATENTAND FLUSHED. BED IN LOWEST POSITION WITH WHEELS LOCKED AND ALARM ON. CALL LIGHT WITHIN REACH. REPORT GIVEN TO ONCOMING RN.
[2021-05-04 05:55] LABS: Alanine Aminotransfer (ALT/SGP 29 U/L (12-78); Albumin, Blood 2.1 g/dL (3.4-5.0); Albumin/Globulin Ratio 0.4 (0.8-1.8); Alk Phos 82 U/L (50-136); Anion Gap 6 mmol/L (6-16); Aspartate Aminotrans (AST/SGOT 31 U/L (12-37); Bilirubin, Total 0.3 mg/dL (0.1-1.0); Blood Urea Nitrogen 5 mg/dL (8-24); Bun/Creatinine Ratio 9.4 (12.0-20.0); CO2, Blood 27 mmol/L (21-32); Calcium, Blood 8.8 mg/dL (8.5-10.1); Chloride, Blood 105 mmol/L (98-108); Creatinine, Blood 0.53 mg/dL (0.40-1.00); Globulin, Blood 4.7 g/dL (2.2-4.0); Glomerular Filtration Rate >60 (60-); Glucose, Blood 181 mg/dL (70-99); Lactate Dehydrogenase (Ld),Bld 169 U/L (100-240); Potassium, Blood 3.9 mmol/L (3.5-5.5); Sodium, Blood 138 mmol/L (136-145); Total Protein, Blood 6.8 g/dL (6.4-8.2)
--- NOTE | 2021-05-04 16:15 | NUR ---
Update 05/04/2021: Contacted the state COVID placement department. I was advised that there is only one SNF in the state of [place] accepting COVID patients currently [facility] in [place]. All info sent to facility and call to Dario with admissions to review. After review and speaking with the patient, they have decided to accept her. [facility] staff Yennifer will be assisting pt. in applying for Medicaid to receive caregiver support or intermediate placement post discharge from SNF. Dr. Manzo will send referral to national account director in area for follow-up on mass. Transportation will be arranaged for tomorrow morning.
[2021-05-04] MEDS ORDERED: ACET325 PO (17:39)
[2021-05-04] MEDS ORDERED: BISA10S PR (17:40)
[2021-05-04] MEDS ORDERED: CEPH500 PO (17:40)
[2021-05-04] MEDS ORDERED: BUSP5 PO (17:40)
[2021-05-04] MEDS ORDERED: DOCU100 PO (17:40)
[2021-05-04] MEDS ORDERED: INSULANPEN SC (17:40)
[2021-05-04] MEDS ORDERED: HUMALOG KW100 UNIT/1 SC (17:41)
[2021-05-04] MEDS ORDERED: LISI20 PO (17:41)
[2021-05-04] MEDS ORDERED: VITAMIN D31000 UNI1 PO (17:42)
[2021-05-04] MEDS ORDERED: POTCHL20ER PO (17:42)
[2021-05-04] MEDS ORDERED: VISBIOME 112.51 EACH PO (17:42)
[2021-05-04] MEDS ORDERED: MICONAZOLE TOP (17:42)
--- NOTE | 2021-05-04 18:55 | NUR ---
SHIFT SUMMARY: NO ACUTE EVENTS. WAS TEARFUL AT TIMES TODAY, VERY WORRIED ABOUT GOING TO REHAB CENTER IN [facility], VOICED CONCERN THAT SHE "WON'T EVER COME OUT OF THERE." DENIED PAIN, WAS ENCOURAGED TO CHANGE POSITIONS OFTEN TO PREVENT FURTHER SKIN DAMAGE. WAS MORE MOBILE TODAY THAN SHE HAS BEEN, UP IN CHAIR X 3 AND WALKED WITH PHYSICAL THERAPY IN ROOM. APPETITE OK. NO COUGH, ON ROOM AIR. WILL D/C TOMORROW TO REHAB FACILITY.
--- NOTE | 2021-05-05 04:39 | NUR ---
SHIFT SUMMARY PATIENT ALERT AND ORIENTED X2. HAD NO COMPLAINTS OF PAIN OR SHORTNESS OF BREATH. SLEPT WELL OVERNIGHT. NO ACUTE ISSUES NOTED. IV PATENT AND FLUSHED. BED IN LOWEST POSITION WITH WHEELS LOCKED AND ALARM ON. CALL LIGHT WITHIN REACH. REPORT GIVEN TO ONCOMING RN.
--- NOTE | 2021-05-05 10:29 | NUR ---
Update 05/05/21- [facility] in [place] are able to accept the pt transfer. According to , case assembler, [facility] and [facility] do not have funds to transport the pt [place]. Have reached out to [facility] for taylor to pay. Waiting to hear back Becka Bradshaw, Director of care management. Packet created and faxed to facility. -[email or web address]
--- NOTE | 2021-05-05 12:44 | NUR ---
Made a visit to pt earlier today. She initially did not make eye contact and continued watching television while I attempted to make conversation. I gently informed her I was leaving the room, as she did not appear interested or engaged, and was not participating in conversation with me. She quickly stated she does "Want to talk", and began to engage in the conversation. We talked about [facility] vs custodial care. Jennifer was under the impression the [facility] facility may want to keep her there, but I explained this is not an option, as skilled services are paid for by insurance, and is for short term improvement. 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 Which is not where she is being sent, at all. Once she understood the difference, her temperament changed. She is agreeable to go, and states she does have someone arranged who can look after her cat while she gets skilled therapy. Relayed this to both Manager Steel Niyah, and Frederick in PT. Unsure when pt is scheduled to leave.
--- NOTE | 2021-05-05 18:06 | NUR ---
PT PLEASANT TODAY. DOES STATE FEELS DEPRESSED. PENDING D/C TO SNF TOMORROW. DID GET PT TO [facility]. DID WELL, BUT VERY WEAK. 1 ASST. NO NEW CONCERNS. CARE CHEMISTRY LECTURER STATES TRANPORT SNF TOMORROW 830AM. BED IN LOW POSITION, CALL LITE IN REACH, CALLS APPROP BED ALARM ON FOR SAFETY
--- NOTE | 2021-05-05 18:56 | NUR ---
DID CHANGE MEPILEX ON BOTTOM AFTER 2 BM TODAY. CHANGED TWICE GOT SOILED
--- NOTE | 2021-05-06 05:33 | NUR ---
SHIFT SUMMARY- PT. A&O W/OCCASIONAL CONFUSION. HAD NO COMPLAINTS OF PAIN OR DISCOMFORT T/O THE NIGHT. PT. DEPRESSED AND CRYING LAST NIGHT, STATED CONCERN THAT SHE WOULD BE SENT TO [facility] AFTER SNF. REQUESTING TO SPEAK WITH SON DIYA, PT. STATED NEEDED TO CALL SON AT [facility] WHERE HE WORKS. THIS NURSE ASSISTED PT. IN CALLING [facility], SON NOT AVAILABLE. ATTEMPTED TO CONTACT SON AT HOME NUMBER, UNSUCCESSFUL. PT. SLEPT T/O THE NIGHT, NO APPARENT DISTRESS NOTED. DSG CHANGE TO R GLUTE, TOLERATED WELL. DENIES ANY NEEDS AT THIS TIME, VSS. CALL LIGHT WITHIN REACH, SIDE RAILS UPX2, AND BED ALARM ON FOR SAFETY. WILL CONT TO MONITOR.
[2021-05-06 05:49] LABS: BASOPHILS ABSOLUTE AUTO 0.06 K/mm3 (0.00-0.23); BASOPHILS PERCENT AUTO 1 % (0-2); EOSINOPHILS ABSOLUTE AUTO 0.13 K/mm3 (0.00-0.68); EOSINOPHILS PERCENT AUTO 2 % (0-6); Hematocrit 38.7 % (33.0-51.0); Hemoglobin 12.6 g/dL (11.5-16.0); IMMATURE GRAN ABSOLUTE AUTO 0.23 K/mm3 (0.00-0.10); IMMATURE GRAN PERCENT AUTO 3 % (0-1); LYMPHOCYTES ABSOLUTE AUTO 2.43 K/mm3 (0.84-5.20); LYMPHOCYTES PERCENT AUTO 36 % (21-46); MONOCYTES ABSOLUTE AUTO 0.59 K/mm3 (0.16-1.47); MONOCYTES PERCENT AUTO 9 % (4-13); Mean Corpuscular HGB 29.6 pg (26.0-34.0); Mean Corpuscular HGB Conc 32.6 g/dL (31.5-36.5); Mean Corpuscular Volume 91 fL (80-100); Mean Platelet Volume 9.5 fL (9.1-12.4); NEUTROPHILS PERCENT AUTO 49 % (41-73); Platelet Count 313 K/mm3 (150-400); RDW Coefficient Variation 12.8 % (11.7-14.2); RDW Standard Deviation 42.3 fL (35.1-46.3); Red Blood Cell Count 4.25 M/mm3 (3.80-5.20); White Blood Cell Count 6.74 K/mm3 (4.00-11.30)
[2021-05-06 06:16] LABS: Anion Gap 7 mmol/L (6-16); Blood Urea Nitrogen 10 mg/dL (8-24); Bun/Creatinine Ratio 17.3 (12.0-20.0); CO2, Blood 26 mmol/L (21-32); Chloride, Blood 104 mmol/L (98-108); Creatinine, Blood 0.58 mg/dL (0.40-1.00); Glomerular Filtration Rate >60 (60-); Glucose, Blood 146 mg/dL (70-99); Sodium, Blood 137 mmol/L (136-145)
--- NOTE | 2021-05-06 09:59 | NUR ---
discharge to care facility in [facility]. iv [id number] intact. cortes intact per note. skin breakdown. pt some weepy and concerned about d/c. reassured. pt wheeled to door by korin at 0845 called report to rachel at [facility]. spoke to rn supervisor meter repair shop. [phone] nayan. report given
--- NOTE | 2021-05-06 16:10 | NUR ---
1. Caregiver or other patient contact: None - son does not return phone calls2. Prior Level of Function (PLOF): independent 3. Level of Function at discharge: SNF indicated4. [facility]. Transportation: [facility]6. Discharge needs: SNF7. Barriers to discharge: Social factors, COVID, need for SNF8. Discharge plan: discharge to [facility]9. PCP: Kesha BRYANT0. Hospital follow-up date & time: EDWINA to [id number]. Specialist appointments: [id number]. Discharged to: [facility] [phone] Update 05/06/21: Pt. discharged to [facility]. Transportation at 0830 this am. Packet given to EMS crew and faxed to facility. Pt. will need hospital f/u appointment arranged with facility. Pt. was also referred to therapist's assistant/oncology in area. We need to ensure that she is scheduled soon and they have arranged visit with [facility]. Pt. is COVID positive.
== END 2021-05-06 08:46 | DRG 871 ==
LOC: ER 19:25 → ERHOLD 22:36 → MEDS 22:36 → ENPENDDIS 05-05 12:00 → MEDS 05-06 08:46
PROVIDERS: Family Medicine; Hospitalist; Internal Medicine Endocrinology, Diabetes & Metabolism; Physician Assistant; Student in an Organized Health Care Education/Training Program; ADMIT Internal Medicine
PROC: 8E0ZXY6 Isolation (ICD-10-PCS; principal; 2021-04-28)
DX: A41.9 Sepsis, unspecified organism (principal); U07.1 COVID-19; G93.41 Metabolic encephalopathy; L03.315 Cellulitis of perineum; Z20.822 Contact with and (suspected) exposure to COVID-19; R65.20 Severe sepsis without septic shock; L89.312 Pressure ulcer of right buttock, stage 2; L89.322 Pressure ulcer of left buttock, stage 2; C54.1 Malignant neoplasm of endometrium; Z66 Do not resuscitate; I10 Essential (primary) hypertension; E87.6 Hypokalemia; E83.39 Other disorders of phosphorus metabolism; R91.8 Other nonspecific abnormal finding of lung field; F41.9 Anxiety disorder, unspecified; F32.9 Major depressive disorder, single episode, unspecified; E11.9 Type 2 diabetes mellitus without complications; Z88.0 Allergy status to penicillin; Z88.7 Allergy status to serum and vaccine; Z98.890 Other specified postprocedural states
CPT/HCPCS: 36415; 51702; 70450; 74177; 80048; 80053; 80069; 80202; 81001; 82550; 82947; 83605; 83615; 83735; 84100; 84145; 85025; 86140; 86304; 87040; 87086; 93005; 93010; 96361-59; 96365-59; 96366-59; 96367-59; 97110; 97116; 97162; 97166; 97530; 97535; 99285-25; A9270; J0690; J0692; J1650; J2543; J3370; J7030; J7050; J7060; J7120; Q9967; U0004